=== PATIENT | male | born 1990 | race Two or more races ===

== ENCOUNTER 2025-04-11 19:54 | Emergency (ER) | payer OTHER ==
[~2025-04-11] VITALS: Ht 188 cm; Wt 109.1 kg
--- NOTE | 2025-04-11 20:04 | Physician Documentation ---
History of Present Illness ~ Chief Complaint: Abscess Stated Complaint: LEG INFECTION Time Seen by MD: 20:04 HPI Patient presents to the emergency room for evaluation of his right lower extremity. He has been suffering from an infection of this leg for the past week and has been paced on Bactrim without effect. No fevers. Tetanus reported to be up-to-date. 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 Medication Reconciliation Allergies: Coded Allergies: No Known Allergies (Unverified , 04/11/25) Review of Systems ROS All review of systems negative except as per HPI Physical Exam Vital Signs: Temperature: 99.1, Heart Rate: 88, Respiratory Rate: 16, BP: 126/69, Pulse Oximetry: 97, Weight: 109.090 Oxygen Flow Rate: 0 Physical Exam General: Patient is awake, alert, oriented x4 in no acute distress Head: Normocephalic and atraumatic. Eyes: Conjunctival normal. EOMI. PERRL. ENT: Mucous membranes moist. Neck: Supple, trachea is midline. Chest: Clear to auscultation bilaterally without rales, rhonchi, or wheezes. There is no accessory muscle use or retractions. Cardiac: RRR without murmurs, gallops, or rubs. Extremities: Abscess with associated cellulitis to patient's right fountain with cellulitis measuring 10 cm x 10 cm and abscess measuring 3 cm x 3 cm with positive fluctuance. Procedures Procedures Incision and drainage: Status post informed verbal consent patient was sterilely cleaned and draped. Using 1% lidocaine with epinephrine to a total of 2 cc patient was appropriately anesthetized to his abscess on his right lower extremity. 11. Blade utilized perform incision and drainage with a star-shaped incision. Abscess was de loculated and a proximally 5 cc of blood and pus was expressed. Patient tolerated procedure well without complication. Total time of procedure 10 minutes. Progress Results/Orders Results/Orders Orders - DON MALIK MD Dressing Orders (04/11/25 20:07) Laceration/I&D Tray Set Up (04/11/25 20:07) Completed Orders - DON MALIK MD Bacitracin Ointment (Bacitracin Ointment (04/11/25 20:10) Ondansetron Disint. Tablet (Zofran Odt T (04/11/25 20:10) Doxycycline 100mg Capsule (Vibramycin 10 (04/11/25 20:07) Lidocaine 1% W/Epi 1:100,000 (Xylocaine (04/11/25 20:15) Medications Received in ER Medications (Trade) Dose Ordered Sig/Marilia Route PRN Reason Start Time Stop Time Status Last Admin Dose Admin (bacitracin ointment) 1 applic ONCE ONCE TP 04/11/25 20:10 04/11/25 20:11 DC 04/11/25 20:15 1 APPLIC (Zofran ODT tablet) 4 mg ONCE ONCE PO 04/11/25 20:10 04/11/25 20:11 DC 04/11/25 20:14 4 MG (VIBRAMYCIN 100mg capsule) 100 mg ONCE STAT PO 04/11/25 20:07 04/11/25 20:11 DC 04/11/25 20:14 100 MG Vital Signs 04/11/25 04/11/25 19:56 20:06 Temp 99.1 Pulse 88 83 Resp 16 18 B/P (MAP) 126/69 142/80 (100) Pulse Ox 97 98 O2 Flow Rate 0 Medical Decision Making Findings Patient presented to the emergency room with wound as per HPI. Differentials include but are not limited to abscess, cellulitis, sepsis, foreign body. Given no history of any sort of possible foreign body and he had not feel patient requires an x-ray. Patient is status post incision and drainage with good amount of pus expressed. I believe he will do well on outpatient basis. We will add doxycycline to his antibiotic regimen. Departure Disposition: HOME / SELF CARE / HOMELESS Impression: Primary Impression: Abscess Condition: Stable Discharge Instructions: Abscess, Care After Referrals: NO PRIMARY CARE PROVIDER (PCP) Prescriptions Doxycycline Monohydrate (Doxycycline Monohydrate) 100 Mg Capsule 1 CAP PO Q12H for 10 Days, #20 CAP Prov: DON MALIK MD 04/11/25 Signature Scribe Signature: No scribe Attestation: The note accurately reflects work and decisions made by me.Don Malik MD 04/11/25 20:43 DON MALIK MD Apr 11, 2025 20:04
[2025-04-11] MEDS ORDERED: LIDOcaine 1% W/epiNEPHrine 1:200,000 10ml vial IJ ONE (20:10)
[2025-04-11] MEDS: DOXYCYCLINE 100MG CAPSULE PO STA (20:14)
[2025-04-11] MEDS: ondansetron 4mg rapidly disintigrating tab PO ONE ×2 (20:14→21:02)
[2025-04-11] MEDS: bacitracin 15gm ointment TP ONE (20:15)
[2025-04-11] MEDS: LIDOcaine 1% W/epiNEPHrine 1:100,000 20ml vial IJ ONE (20:19)
[2025-04-11] MEDS ORDERED: DOXY-460 PO (20:43)
[2025-04-11] MEDS: morphine 4 MG/ML inj SYRINge IM ONE (21:28)
[2025-04-11 21:33] VITALS: BP 114/73; PULSE 76; RESP 14; TEMP 98.9; O2SAT 97
== END 2025-04-11 21:40 | disposition home or self-care (01) ==
LOC: ER 19:55
DX: L02.415 Cutaneous abscess of right lower limb (principal)
CPT/HCPCS: 10060; 96372; 99284; J2270; A6449